=== PATIENT | female | born 1985 | race Caucasian/White ===

== ENCOUNTER → 2019-05-21 09:55 | Outpatient (CLI) | payer BC, SELFPAY ==
[2019-05-21 12:35] LABS: Anion Gap 3 (5-15); BUN 11 mg/dL (7-18); BUN/Creat Ratio 13.9 RATIO (10-20); Calcium,Total 8.7 mg/dL (8.5-10.1); Chloride 107 mmol/L (98-107); Creatinine, Serum 0.79 mg/dL (0.55-1.02); EST Glomerular Filtration Rate 88 mL/min (>60); Est Glom Filt Rate - Afr Amer 106 mL/min (>60); Glucose 89 mg/dL (74-106); Potassium 4.2 mmol/L (3.5-5.1); Sodium Level 136 mmol/L (136-145)
== END ==
PROVIDERS: PCP Family Medicine; Visit Provider Family Medicine
DX: I11.9 Hypertensive heart disease without heart failure (principal)
CPT/HCPCS: 36415; 80048

== ENCOUNTER → 2019-09-03 09:59 | Outpatient (CLI) | payer MEDICAID, SELFPAY ==
[2019-07-25 10:55] VITALS: BMI 51.0
--- NOTE | 2019-09-03 16:14 | PFTCOMP_ITS ---
COMPLETE PULMONARY FUNCTION TEST INTERPRETATION Brief HPI: Patient is a 34 year old female, currently under the care of Dr. Montoya, who presents to [facility] for complete pulmonary function tests secondary to diagnosis of asthma. Respiratory therapist reports good effort and reproducible results. Interpretation: Forced expiration spirometry shows no large airways obstructive ventilatory defect with an FEV1 of 81% predicted. There is no significant bronchodilator response by strict ATS criteria. Spirograms are of good quality and plateau normally. The respiratory flow volume loop shows a normal pattern. Lung volumes by body plethysmography show a slightly reduced total lung capacity at 3.66 L, 82% predicted. All other lung volumes are reduced symmetrically. Diffusion capacity by carbon monoxide is normal at 80% predicted. The airway resistance is normal. No previous pulmonary function tests were available for review. Impression: Mild restrictive ventilatory defect with preserved diffusion capacity.
== END ==
PROVIDERS: PCP Family Medicine; Referring Provider Internal Medicine Critical Care Medicine; Visit Provider Internal Medicine Critical Care Medicine
DX: J45.909 Unspecified asthma, uncomplicated (principal)
CPT/HCPCS: 94060; 94726; 94729

== ENCOUNTER → 2019-11-06 12:18 | Outpatient (CLI) | payer MEDICAID, SELFPAY ==
[2019-09-10 07:44] VITALS: BMI 51.8
[2019-11-06 12:30] VITALS: PULSE 105; PULSE 111; PULSE 113; PULSE 114; PULSE 116; PULSE 124; PULSE 82; O2SAT 91; O2SAT 97; O2SAT 98
--- NOTE | 2019-11-07 13:46 | PCM.PSN.6M ---
PSN 6 Minute Walk Test - 6 Minute Walk Test 6 Minute Walk Test: 6 Minute Walk Test PSN:6-Minute Walk Test Start: 11/06/19 12:45 Freq: Status: Active Protocol: [id number] Document 11/06/19 12:30 EW (Rec: 11/06/19 12:51 EW [id number]) 6 Minute Walk Test Date Performed 11/06/19 Time Performed 12:30 Height 5 ft 1 in Weight: 276 lb Weight in Pounds 276.[address]: Maryanne Wagoner Assistive device used: None Pre-test Oxygen Delivery Method Room Air Pulse Ox (%) 97 Pulse Rate (60-100 beats/min) 82 Dyspnea Sana Scale (0-10) 0 Exertion Sana Scale (6-20) 6 1st minute Oxygen Delivery Method Room Air Pulse Ox (%) 98 Pulse Rate (60-100 beats/min) 114 H 2nd minute Oxygen Delivery Method Room Air Pulse Ox (%) 91 Pulse Rate (60-100 beats/min) 116 H 3rd minute Oxygen Delivery Method Room Air Pulse Ox (%) 98 Pulse Rate (60-100 beats/min) 124 H 4th minute Oxygen Delivery Method Room Air Pulse Ox (%) 97 Pulse Rate (60-100 beats/min) 114 H 5th minute Oxygen Delivery Method Room Air Pulse Ox (%) 97 Pulse Rate (60-100 beats/min) 111 H 6th minute Oxygen Delivery Method Room Air Pulse Ox (%) 97 Pulse Rate (60-100 beats/min) 113 H Post-test Oxygen Delivery Method Room Air Pulse Ox (%) 97 Pulse Rate (60-100 beats/min) 105 H Dyspnea Sana Scale (0-10) 3 Exertion Sana Scale (6-20) 13 Full Laps Walked 18 Partial Lap, Number of Tiles Walked 8 Total Distance Walked (ft) 1070 - Interpretation Interpretation: The patient ambulated 1070 feet over the course of 6 minutes beginning on room air without assistive devices or breaks. Pretesting oxygen saturation was noted to be 97% on room air. With ambulation, the ashley oxygen saturation was 91%. This represents a significant exertional oxygen desaturation. - Recommendations Recommendations: There is no indication for the use of supplemental oxygen at this time.
== END ==
PROVIDERS: PCP Family Medicine; Referring Provider Nurse Practitioner Acute Care; Visit Provider Nurse Practitioner Acute Care
DX: R06.02 Shortness of breath (principal)
CPT/HCPCS: 94618

== ENCOUNTER → 2019-11-14 11:17 | Outpatient (CLI) | payer MEDICAID, SELFPAY ==
[2019-09-10 07:44] VITALS: BMI 51.8
[2019-11-14 12:24] LABS: BNP,B-Type NATRIURETIC PEPTIDE 41.6 pg/mL (0-100)
[2019-11-14 17:01] LABS: Absolute Lymphocyte Count 2.15 X10^3/uL (0.83-4.51); Absolute Neutrophil Count 8.7 X10^3/uL (2.0-7.7); Basophil# 0.04 X10^3/uL; Basophil% 0.3 % (0-1); Eosinophil# 0.13 X10^3/uL; Eosinophils% 1.1 % (0-5); Hematocrit 39.1 % (37-47); Hemoglobin 13.1 g/dL (12.0-15.0); Lymphocyte # 2.15 X10^3/ul (4.0); Lymphocyte % 18.1 % (19-41); Mean Corp Hgb Conc 33.5 g/dL (32-36); Mean Corpuscular Hgb 30.2 pg (27.0-32.0); Mean Corpuscular Volume 90.1 fL (81-99); Mean Platelet Vol. 10.9 fl (6.2-12.0); Monocyte# 0.84 X10^3/uL; Monocyte% 7.1 % (0-10); NRBC Flagged by Analyzer 0 % (0-5); Neutrophil # 8.67 X10^3/uL (2.7-7.7); Neutrophil % 73.2 % (47-70); Platelet Count 307 K/mm3 (150-450); RBC Distribution Width SD 39.5 fl (35.1-43.9); Red Blood Count 4.34 M/mm3 (4.2-5.4); White Blood Count 11.9 K/mm3 (4.4-11.0)
[2019-11-18 12:06] LABS: Alternaria tenuis <0.10 kU/L (Class 0); Ash, White <0.10 kU/L (Class 0); Aspergillus fumigatus <0.10 kU/L (Class 0); Bermuda Grass <0.10 kU/L (Class 0); Birch <0.10 kU/L (Class 0); Black Walnut <0.10 kU/L (Class 0); Cat Hair / Dander,Stand <0.10 kU/L (Class 0); Cedar, Mountain <0.10 kU/L (Class 0); Cladosporium herbarum <0.10 kU/L (Class 0); Cockroach, American <0.10 kU/L (Class 0); Cottonwood <0.10 kU/L (Class 0); D farinae Mite <0.10 kU/L (Class 0); D pteronyssinus <0.10 kU/L (Class 0); Dog Epithelia <0.10 kU/L (Class 0); Elm, American White <0.10 kU/L (Class 0); Immunoglobulin E 8 IU/mL (6-495); Maple/Box Elder <0.10 kU/L (Class 0); Mulberry, White <0.10 kU/L (Class 0); Oak, White <0.10 kU/L (Class 0); Pecan <0.10 kU/L (Class 0); Penicillium Notatum <0.10 kU/L (Class 0); Pigweed, Rough <0.10 kU/L (Class 0); Ragweed, Short/Common <0.10 kU/L (Class 0); Russian Thistle <0.10 kU/L (Class 0); Sheep Sorrel <0.10 kU/L (Class 0); Sycamore, American <0.10 kU/L (Class 0); Timothy Grass <0.10 kU/L (Class 0)
[2019-11-18 13:58] LABS: Mouse Urine <0.10 kU/L (Class 0)
[2019-11-18 16:08] LABS: Aspirgillus flavus Negative (Neg:<1:1); Aspirgillus fumigatus Negative (Neg:<1:1); Aspirgillus niger Negative (Neg:<1:1); Cytoplasmic Ab (C-ANCA) <1:20 titer (Neg:<1:20)
[2019-11-19 13:35] LABS: Immunoglobulin E 7 IU/mL (6-495); Perinuclear Ab (P-ANCA) <1:20 titer (Neg:<1:20)
== END ==
PROVIDERS: PCP Family Medicine; Referring Provider Internal Medicine Critical Care Medicine; Visit Provider Internal Medicine Critical Care Medicine
DX: J45.909 Unspecified asthma, uncomplicated (principal)
CPT/HCPCS: 36415; 82785; 83880; 85025; 86003; 86256; 86606